=== PATIENT | male | born 1940 | race Caucasian/White ===

== ENCOUNTER 2023-10-05 10:15 | Inpatient (IN) | payer MEDICARE, OTHER ==
[2023-10-05] MEDS ORDERED: Acetaminophen 650 MG Suppository PR PRN (14:20)
[2023-10-05] MEDS ORDERED: Ondansetron PF 4 MG/2 ML Vial IVP PRN (14:20)
[2023-10-05] MEDS ORDERED: Acetaminophen 325 MG TAB PO PRN (14:20)
[2023-10-05] MEDS ORDERED: Glucagon 1 MG/ML KIT IM PRN (14:23)
[2023-10-05] MEDS ORDERED: Dextrose 5% in Water 1,000 ML IV PRN (14:23)
[2023-10-05] MEDS ORDERED: HumaLOG 300 UNITS/3 ML VIAL SC PRN ×2 (14:23)
[2023-10-05] MEDS ORDERED: Dextrose 50% Abboject 50 ML SYRINGE SLOW IVP PRN (14:23)
[2023-10-05 15:28] LABS: Bacteria/HPF None Seen HPF (None Seen); Bilirubin Negative (Negative); Blood, Urine Negative (Negative); Clarity Turbid (Clear); Glucose, Urine (Dipstick) Normal (Negative); Ketone, Urine Negative (Negative); Leukocyte Negative Leu/uL (Negative); Nitrite Negative (Negative); Protein, Urine (Dipstick) 50 mg/dL (Neg-Trace); RBC/HPF 0-3 HPF (0-3); Specific Gravity, Urine 1.023 (1.002-1.036); Squamous Epithelial 0-3 HPF (0-3); Urobilinogen Normal mg/dL (Less than 2); WBC/HPF 0-3 HPF (0-3)
[2023-10-05 16:15] LABS: #Basophils 0.05 10x3/uL (0.0-0.2); %Basophils 0.4 % (0.0-1.0); %Eosinophils 0.6 % (0.0-10.0); %Lymphocytes 9.4 % (21.0-51.0); %Monocytes 8.5 % (0.0-10.0); %Neutrophils 80.5 % (42.0-75.0); Hemoglobin 13.1 g/dL (14.0-18.0); Mean Corpuscular Hemoglobin 30.8 pg (27.0-31.0); Mean Corpuscular Volume 96.5 fL (78.0-98.0); Mean Platelet Volume 10.7 fL (7.4-10.4); Platelet Count 516 10x3/uL (130-400); RBC Distribution Width 13.7 % (11.5-14.5); Red Blood Cell (RBC) Count 4.25 mill/uL (4.70-6.10)
[2023-10-05 16:24] VITALS: BMI 28.8
[2023-10-05 16:39] LABS: ALT (SGPT) 14 U/L (8-55); AST (SGOT) 29 U/L (5-34); Albumin 2.4 g/dL (3.4-4.8); Alkaline Phosphatase 241 U/L (40-110); Anion Gap 15 mmol/L (10-20); BUN (Urea Nitrogen) 41 mg/dL (8.4-25.7); Bilirubin, Total 0.4 mg/dL (0.2-1.2); Calc. Creatinine Clearance 35 mL/min (70-130); Calcium 8.9 mg/dL (7.8-10.44); Carbon Dioxide 20 mmol/L (23-31); Chloride 104 mmol/L (98-107); Estimated GFR 32; Globulin 4.1 g/dL (2.4-3.5); Glucose 180 mg/dL (83-110); Potassium 4.2 mmol/L (3.5-5.1); Protein, Total 6.5 g/dL (5.8-8.1); Sodium 135 mmol/L (136-145)
[2023-10-05] MEDS ORDERED: Communication Order-Pharmacy FS SCH (18:00)
[2023-10-05] MEDS: cefTRIAXone\\ROCEPHIN 2 GM in Sodium Chloride 0.9% 100 ML IVPB SCH (18:21)
[2023-10-05] MEDS ORDERED: INSULIN ASPART 100 UNIT/ML SC SCH (18:30)
[2023-10-05 18:54] LABS: Creatinine, Urine 178.87 mg/dL (63-166)
[2023-10-05] MEDS: Albumin 25% 25 GM (100 mL) BOT IVPB SCH (19:11)
[2023-10-05 19:16] LABS: INR-International Normal Ratio 1.1; Prothrombin Time 14.1 sec (12.0-14.7)
[2023-10-05 19:17] LABS: PTT 29.7 sec (22.9-36.1)
[2023-10-05] MEDS: Heparin 5,000 UNITS/ML VIAL SC SCH (21:04)
[2023-10-05] MEDS: Famotidine 20 MG TAB PO SCH (21:04)
[2023-10-06 05:43] LABS: #Basophils 0.06 10x3/uL (0.0-0.2); %Basophils 0.4 % (0.0-1.0); %Eosinophils 1.4 % (0.0-10.0); %Lymphocytes 10.6 % (21.0-51.0); Hemoglobin 11.6 g/dL (14.0-18.0)
[2023-10-06 05:55] LABS: %Monocytes 11.2 % (0.0-10.0); Hematocrit 35.5 % (42.0-52.0); Mean Corpuscular HGB CONC 32.7 g/dL (32.0-36.0); Mean Corpuscular Hemoglobin 31.6 pg (27.0-31.0); Mean Corpuscular Volume 96.7 fL (78.0-98.0); Mean Platelet Volume 11.3 fL (7.4-10.4); Platelet Count 456 10x3/uL (130-400); RBC Distribution Width 13.9 % (11.5-14.5); Red Blood Cell (RBC) Count 3.67 mill/uL (4.70-6.10)
[2023-10-06 05:57] LABS: ALT (SGPT) 15 U/L (8-55); AST (SGOT) 22 U/L (5-34); Albumin 2.7 g/dL (3.4-4.8); Alkaline Phosphatase 205 U/L (40-110); Anion Gap 16 mmol/L (10-20); BUN (Urea Nitrogen) 38 mg/dL (8.4-25.7); Bilirubin, Total 0.4 mg/dL (0.2-1.2); Calc. Creatinine Clearance 35 mL/min (70-130); Calcium 8.9 mg/dL (7.8-10.44); Carbon Dioxide 21 mmol/L (23-31); Chloride 104 mmol/L (98-107); Estimated GFR 33; Globulin 3.5 g/dL (2.4-3.5); Glucose 146 mg/dL (83-110); Potassium 4.4 mmol/L (3.5-5.1); Protein, Total 6.2 g/dL (5.8-8.1); Sodium 137 mmol/L (136-145)
[2023-10-06 06:07] LABS: Hemoglobin A1c 7.3 % (4.0-6.0)
[2023-10-06] MEDS ORDERED: Lidocaine 1% PF 5 ML VIAL ONE (10:53)
[2023-10-06 11:46] VITALS: BMI 28.8
[2023-10-06] MEDS: Albumin 25% 25 GM (100 mL) BOT IVPB SCH (12:26)
[2023-10-06 13:36] LABS: RBC Count-Automated (BF) 144 /cu.mm; WBC/Nucleated-Auto (BF) 1946 /cu.mm
[2023-10-06 13:42] LABS: BF Color Yellow; Body Fluid Source Paracentesis Fluid; Clarity Hazy (Clear); Fluid, Protein 2.8 g/dL (Not Available); Tube # EDTA
[2023-10-06 14:00] LABS: BF Segmented Neutrophils 62 %; Cell Count Non Hematic 16 %; Lymphocytes 22 %
[2023-10-06] MEDS: cefTRIAXone\\ROCEPHIN 2 GM in Sodium Chloride 0.9% 100 ML IVPB SCH (17:07)
[2023-10-07 05:13] LABS: #Basophils 0.03 10x3/uL (0.0-0.2); %Basophils 0.3 % (0.0-1.0); %Eosinophils 1.5 % (0.0-10.0); %Monocytes 9.9 % (0.0-10.0); Hematocrit 32.8 % (42.0-52.0); Hemoglobin 10.6 g/dL (14.0-18.0); Mean Corpuscular HGB CONC 32.3 g/dL (32.0-36.0); Mean Corpuscular Hemoglobin 30.9 pg (27.0-31.0); Mean Corpuscular Volume 95.6 fL (78.0-98.0); Mean Platelet Volume 11.1 fL (7.4-10.4); Platelet Count 437 10x3/uL (130-400); RBC Distribution Width 13.8 % (11.5-14.5); Red Blood Cell (RBC) Count 3.43 mill/uL (4.70-6.10)
[2023-10-07 05:31] LABS: Anion Gap 16 mmol/L (10-20); BUN (Urea Nitrogen) 35 mg/dL (8.4-25.7); Calc. Creatinine Clearance 40 mL/min (70-130); Calcium 8.8 mg/dL (7.8-10.44); Carbon Dioxide 21 mmol/L (23-31); Chloride 107 mmol/L (98-107); Estimated GFR 39; Glucose 177 mg/dL (83-110); Potassium 3.7 mmol/L (3.5-5.1); Sodium 140 mmol/L (136-145)
[2023-10-07] MEDS: Famotidine 20 MG TAB PO SCH (08:37)
[2023-10-07] MEDS: Albumin 25% 25 GM (100 mL) BOT IVPB SCH (12:27)
[2023-10-08 04:28] LABS: #Basophils 0.04 10x3/uL (0.0-0.2); %Basophils 0.3 % (0.0-1.0); %Eosinophils 2.5 % (0.0-10.0); %Lymphocytes 12.3 % (21.0-51.0); %Monocytes 11.5 % (0.0-10.0); %Neutrophils 73.1 % (42.0-75.0); Hematocrit 31.4 % (42.0-52.0); Hemoglobin 10.3 g/dL (14.0-18.0); Mean Corpuscular HGB CONC 32.8 g/dL (32.0-36.0); Mean Corpuscular Hemoglobin 30.5 pg (27.0-31.0); Mean Corpuscular Volume 92.9 fL (78.0-98.0); Mean Platelet Volume 10.9 fL (7.4-10.4); Platelet Count 332 10x3/uL (130-400); RBC Distribution Width 13.8 % (11.5-14.5); Red Blood Cell (RBC) Count 3.38 mill/uL (4.70-6.10)
[2023-10-08 05:14] LABS: ALT (SGPT) 6 U/L (8-55); AST (SGOT) 18 U/L (5-34); Albumin 3.6 g/dL (3.4-4.8); Alkaline Phosphatase 130 U/L (40-110); Anion Gap 13 mmol/L (10-20); BUN (Urea Nitrogen) 33 mg/dL (8.4-25.7); Bilirubin, Total 0.3 mg/dL (0.2-1.2); Calc. Creatinine Clearance 41 mL/min (70-130); Calcium 8.9 mg/dL (7.8-10.44); Carbon Dioxide 23 mmol/L (23-31); Chloride 109 mmol/L (98-107); Estimated GFR 43; Globulin 2.3 g/dL (2.4-3.5); Glucose 56 mg/dL (83-110); Potassium 3.8 mmol/L (3.5-5.1); Protein, Total 5.9 g/dL (5.8-8.1); Sodium 141 mmol/L (136-145)
[2023-10-09 05:35] LABS: Anion Gap 18 mmol/L (10-20); BUN (Urea Nitrogen) 33 mg/dL (8.4-25.7); Calc. Creatinine Clearance 37 mL/min (70-130); Calcium 8.8 mg/dL (7.8-10.44); Carbon Dioxide 17 mmol/L (23-31); Chloride 108 mmol/L (98-107); Estimated GFR 38; Glucose 289 mg/dL (83-110); Potassium 4.4 mmol/L (3.5-5.1); Sodium 139 mmol/L (136-145)
[2023-10-09 05:48] LABS: #Basophils 0.06 10x3/uL (0.0-0.2); %Basophils 0.5 % (0.0-1.0); %Eosinophils 2.4 % (0.0-10.0); %Lymphocytes 10.1 % (21.0-51.0); %Monocytes 10.6 % (0.0-10.0); Hematocrit 34.1 % (42.0-52.0); Hemoglobin 10.9 g/dL (14.0-18.0); Mean Corpuscular Hemoglobin 30.7 pg (27.0-31.0); Mean Corpuscular Volume 96.1 fL (78.0-98.0); Mean Platelet Volume 11.3 fL (7.4-10.4); Platelet Count 474 10x3/uL (130-400); RBC Distribution Width 13.8 % (11.5-14.5); Red Blood Cell (RBC) Count 3.55 mill/uL (4.70-6.10)
[2023-10-09] MEDS ORDERED: Sodium Bicarbonate Tab 325 MG TAB PO SCH (11:00)
[2023-10-09] MEDS: Sodium Bicarbonate Tab 325 MG TAB PO SCH (11:05)
[2023-10-09 11:28] VITALS: BP 127/75; TEMP 98
== END 2023-10-09 13:25 | disposition home or self-care (01) | DRG 871 ==
LOC: 2NO 10:15
PROVIDERS: ADMIT Internal Medicine; ATTEND Internal Medicine
PROC: 0W9G3ZZ Drainage of Peritoneal Cavity, Percutaneous Approach (ICD-10-PCS; principal; 2023-10-06)
DX: A41.9 Sepsis, unspecified organism (principal); K65.9 Peritonitis, unspecified; R18.8 Other ascites; N17.9 Acute kidney failure, unspecified; E87.20 Acidosis, unspecified; D69.6 Thrombocytopenia, unspecified; E11.22 Type 2 diabetes mellitus with diabetic chronic kidney disease; Z79.899 Other long term (current) drug therapy; Z79.82 Long term (current) use of aspirin; Z79.4 Long term (current) use of insulin; Z79.84 Long term (current) use of oral hypoglycemic drugs; E78.5 Hyperlipidemia, unspecified; Z98.890 Other specified postprocedural states; N18.30 Chronic kidney disease, stage 3 unspecified; Z79.01 Long term (current) use of anticoagulants; D63.1 Anemia in chronic kidney disease; I12.9 Hypertensive chronic kidney disease with stage 1 through stage 4 chronic kidney disease, or unspecified chronic kidney disease
CPT/HCPCS: 36415; 36416; 49083; 76705; 80048; 80053; 81001; 82042; 82378; 82570; 82945; 83036; 83605; 83880; 84145; 84156; 84157; 85025; 85060; 85610; 85730; 87040; 87070; 87205; 88112; 88305; 89051; J0696; J1644; J3490; P9047